=== PATIENT | male | born 1945 | race Caucasian/White ===

== ENCOUNTER 2020-05-05 09:51 | Outpatient (REF) | payer MEDICARE, SELFPAY ==
--- NOTE | 2020-05-05 09:58 | XR_ITS ---
EXAMINATION: XR CHEST CLINICAL INFORMATION: Recurrent UTI COMPARISON: None TECHNIQUE: 2 views of the chest were obtained. FINDINGS: Heart is upper limits of normal size. The vascularity is normal. There is no lobar or segmental airspace consolidation or definite groundglass opacity. The costophrenic sulci are clear and there is no effusion. The hilar and mediastinal contours are normal. There are degenerative changes thoracic spine. Mild loss of height midthoracic vertebral body seen with ossification anterior spinal ligament. XR/XR chest 2V IMPRESSION: No acute intrathoracic disease.
== END 2020-05-05 09:52 | disposition home or self-care (01) ==
LOC: HO.XRAY 09:51
PROVIDERS: PCP Internal Medicine; Visit Provider Internal Medicine
DX: N39.0 Urinary tract infection, site not specified (principal)
CPT/HCPCS: 71046

== ENCOUNTER → 2020-05-08 09:40 | Outpatient (BNVA) | payer MEDICARE, SELFPAY | PROVIDERS: Visit Provider Internal Medicine | DX: N39.0 Urinary tract infection, site not specified (principal) | CPT/HCPCS: 99212 ==

== ENCOUNTER → 2020-11-06 10:20 | Outpatient (BNVA) | payer MEDICARE, SELFPAY | PROVIDERS: Visit Provider Internal Medicine | DX: N39.0 Urinary tract infection, site not specified (principal) | CPT/HCPCS: 99212 ==

== ENCOUNTER → 2021-05-07 10:14 | Outpatient (BNVA) | payer MEDICARE, SELFPAY | PROVIDERS: Visit Provider Internal Medicine | DX: N39.0 Urinary tract infection, site not specified (principal) | CPT/HCPCS: 99212 ==

== ENCOUNTER → 2021-11-08 10:29 | Outpatient (BNVA) | payer MEDICARE, SELFPAY | PROVIDERS: Visit Provider Internal Medicine | DX: N39.0 Urinary tract infection, site not specified (principal) | CPT/HCPCS: 99212 ==